=== PATIENT | female | born 1950 | race Caucasian/White ===

== ENCOUNTER → 2021-06-03 14:10 | Outpatient (BNVA) | payer MEDICARE, SELFPAY | PROVIDERS: PCP Internal Medicine; Visit Provider Nurse Practitioner Family | DX: G25.81 Restless legs syndrome (principal); F09 Unspecified mental disorder due to known physiological condition; F41.9 Anxiety disorder, unspecified | CPT/HCPCS: 99212 ==

== ENCOUNTER 2022-02-10 14:00 | Outpatient (RCR) | payer MEDICARE, SELFPAY | END 2022-03-05 15:32 | disposition home or self-care (01) | LOC: HO.PT 14:00 | PROVIDERS: PCP Internal Medicine; Visit Provider Internal Medicine | DX: N81.84 Pelvic muscle wasting (principal) | CPT/HCPCS: 97110; 97112; 97140; 97161 ==

== ENCOUNTER 2022-05-15 13:52 | Outpatient (REF) | payer MEDICARE, SELFPAY ==
--- NOTE | ~2022-05-15 | XR_ITS ---
EXAMINATION: XR FOOT, LEFT CLINICAL INFORMATION: Pain metatarsus of lt foot COMPARISON: None TECHNIQUE: AP, lateral, and oblique views of the left foot. FINDINGS: There is no acute or healing fracture, dislocation, destructive process. Subtalar joint is unremarkable. The retrocalcaneal recess appears preserved. There is small to moderate posterior calcaneal spur. There is borderline spur proximal dorsum tarsal navicular. There is no erosive arthropathy. Hammertoes are seen second through fifth digits with mild narrowing interphalangeal joints. XR/XR foot LT min 3V IMPRESSION: 1. No fracture, dislocation, destructive process. 2. Posterior calcaneal spur. 3. Hammertoes. Narrowing interphalangeal joints. No erosive changes.
== END 2022-05-15 13:53 | disposition home or self-care (01) ==
LOC: HO.XRAY 13:52
PROVIDERS: PCP Internal Medicine; Visit Provider Nurse Practitioner Family
DX: M89.8X7 Other specified disorders of bone, ankle and foot (principal)
CPT/HCPCS: 73630

== ENCOUNTER 2025-02-03 12:19 | Outpatient (AMB) | payer MEDICARE, SELFPAY ==
--- NOTE | 2025-02-03 12:48 | AM.OFFWIN_ITS ---
Intake Vital Signs 02/03/25 12:49 Height 5 ft 2.5 in Weight 142 lb BMI 25.6 BP 132/76 Blood Pressure Location Lt brachial Position Sitting Pulse 66 Pulse Source Pulse Oximeter Pulse Oximetry (%) 100 Oxygen Delivery Method Room Air Intake Visit Reasons: ep chest pain and arm pain Patient Tobacco Use Status: Never used Tobacco Allergies latex Allergy (Intermediate, Verified 02/03/25 12:50) Unknown prednisolone (From Pred Mild) Allergy (Intermediate, Verified 02/03/25 12:50) Unknown Do you need a note to return to daycare/school/sports/work: No HPI HPI Comments History of Present Illness Details History of Present Illness - The patient is a 74-year-old female wi th past med hx of GERD and anxiety presenting with chest pain x 1 hour. - The chest pain began after lunch today , which consisted of scrambled eggs with cheese, zaldivar bits, and iced coffee. - The pain was described as sharp, burni ng, and achy, located centrally and moving towards the right side of the chest. - The patient experienced sweating but d enied nausea, vomiting or dizziness. - She has a history of gastroesophageal reflux disease, for which she takes omeprazole, she took it this morning. Physical Exam General: Cooperative, healthy appearing, comfortable, no acute distress and well developed Orientation: Patient oriented x3 Limitations: No limitations Head: Normal to inspection Ears: Hearing grossly normal bilaterally Nose: Normal External nose present Face and sinus: Normal facial exam Eyes: Appearance normal, both eyes and all related structures Neck: Normal visual inspection and Yes full ROM Respiratory: Normal respiratory effort and able to speak in complete sentences. Skin: Diaphoretic Neuro: Patient oriented x3 Extremities: Normal to inspection Review of Systems - Cardiovascular: Reports chest pain, de nies nausea and dizziness. - Gastrointestinal: Reports gastroesopha geal reflux disease, denies food impaction. - Musculoskeletal: Reports shoulder pain and sciatica. All systems reviewed and are unremarkable except as noted in HPI PFSH Surgical History (Updated 05/16/21 @ 13:35 by Ijeoma Arnold) H/O arthroscopic knee surgery H/O shoulder surgery Family History (Updated 05/16/21 @ 13:34 by Ijeoma Arnold) Father Myocardial infarction Cataract Mother Cancer Schizoaffective disorder Son Arthritis Social History (Updated 06/03/21 @ 14:19 by AUGIE Goode) Alcohol intake: current Alcohol intake frequency: holidays/special occasions only Patient Tobacco Use Status: Never used Tobacco Physical Exam Vital Signs: Last Vital Signs Pulse 66 02/03/25 12:49 BP 132/76 02/03/25 12:49 Pulse Ox 100 02/03/25 12:49 Oxygen Delivery Method Room Air 02/03/25 12:49 BMI result Body Mass Index 25.6 Office Procedures EKG Details: EKG is normal sinus rhythm 61BPM left axis deviation LVH with QRS widening can not rule out septal infarct, when compared to EKG from [facility] 12/05/2024 is exactly the same, all these findings were on that EKG. No acute changes on today's EKG [id number], Complete Office Meds aspirin 325 mg tablet Performing Provider: Susie Lopez PA-C Performing Location: [facility] [facility] Administered by: Susie Lopez PA-C on 02/03/25 13:13 Dose Route Admin Location Dispensed Lot Number Expiration Date [facility] [place] 325 mg PO 1 tab 12/25/25 [employer] Assessment & Plan Assessment & Plan (1) Chest pain: Code(s): R07.9 - Chest pain, unspecified Qualifiers: Chest pain type: unspecified Qualified Code(s): R07.9 - Chest pain, unspecified Plan: Patient was informed and verbally consented to the use of an ambient scribe for clinic note documentation during this visit. Acute onset of chest pain with diaphoresis - EKG no acute changes, same as prior, NSR 61 BPM - The patient was advised to go to the emergency room for further evaluation to rule out any cardiac events. - She was given aspirin to take before leaving for the emergency room. - 325mg chewable Aspirin was given in office - Patient refused an ambulance, her will drive her to [facility], AMA form signed. - Called [facility] with expect Orders: Orders AMB EKG-In Office Today R07.9 - Chest pain, unspecified AMB Aspirin Adult Dose Today R07.9 - Chest pain, unspecified Coding Level of Care Code New Pt Level 5 (80790) Diagnoses Chest pain, unspecified type R07.9 Chest pain type: unspecified CPT Codes EKG - CPT: [id number], Complete ([id number])
[2025-02-03 12:49] VITALS: BP 132/76; PULSE 66; O2SAT 100; BMI 25.6
== END 2025-02-03 13:12 | disposition home or self-care (01) ==
PROVIDERS: PCP Internal Medicine; Visit Provider Physician Assistant
DX: R07.9 Chest pain, unspecified (principal)

== ENCOUNTER → 2025-02-03 12:19 | Outpatient (BNVA) | payer MEDICARE, SELFPAY | PROVIDERS: PCP Internal Medicine; Visit Provider Physician Assistant | DX: R07.9 Chest pain, unspecified (principal); K21.9 Gastro-esophageal reflux disease without esophagitis; Z79.899 Other long term (current) drug therapy | CPT/HCPCS: 93005; 99202 ==